=== PATIENT | male | born 1995 | race Caucasian/White ===

== ENCOUNTER 2017-09-26 15:44 | Emergency (ER) | payer BC ==
[~2017-09-26] VITALS: Ht 180.3 cm; Wt 75.0 kg
[2017-09-26 15:45] VITALS: BP 144/88; PULSE 80; RESP 14; TEMP 99; O2SAT 100
[2017-09-26] MEDS ORDERED: IBUP-232 PO (16:16)
[2017-09-26] MEDS ORDERED: TYLETAB34 PO (16:16)
[2017-09-26] MEDS ORDERED: CEPH-460 PO (16:16)
[2017-09-26] MEDS ORDERED: BACT800T5 PO (16:16)
--- NOTE | 2017-09-26 16:17 | PD ---
HPI Chief Complaint: Skin Problem Time Seen by Provider: 15:54 (Jacki Thomas DO) Time Seen by Provider: 18:47 (Jesus Real) Travel History International Travel<30 days: No Contact w/Intl Traveler<30days: No Traveled to known affect area: No (Jacki Thomas DO) International Travel<30 days: No Contact w/Intl Traveler<30days: No Traveled to known affect area: No (Jesus Real) History of Present Illness HPI Patient is a 21-year-old male presents to emergency room complaints of abscess to his left posterior ear. Patient reports that initially, he noticed a bump "pimple" to the back of his ear, reports that he has been picking at the back of his ear and the "bump" got a lot bigger and painful. Patient reports that he always develops abscesses and is unsure why. Patient with no fever/chills. Reports that tetanus is not up do date. Patient with no other complaints at this time. (Jacki Thomas DO) FORMERLY [facility] Past Medical History Medical History: Denies Significant Hx (Jacki Thomas DO) Past Surgical History Surgical History: No Previous Surgery (Jacki Thomas DO) Social History Tobacco Use: No (Jacki Thomas DO) Allergies-Medications (Allergen,Severity, Reaction): Coded Allergies: No Known Allergies (Verified Allergy, Unknown, 09/26/17) Reported Meds & Prescriptions Reported Meds & Active Scripts Active Tylenol-Codeine #3 (Acetaminophen-Codeine) 300-30 mg Tab 1-2 Tab PO Q6H PRN Ibuprofen 600 Mg Tab 600 Mg PO Q6H PRN Bactrim DS (Sulfamethoxazole-Trimethoprim) 800-160 Mg Tab 1 Tab PO BID 7 Days Keflex (Cephalexin) 500 Mg Cap 500 Mg PO Q6H 7 Days (Jesus Real) Review of Systems General / Constitutional: No: Fever Eyes: No: Visual changes HENT: No: Headaches Cardiovascular: No: Chest Pain or Discomfort Respiratory: No: Shortness of Breath Gastrointestinal: No: Abdominal Pain Genitourinary: No: Dysuria Musculoskeletal: No: Pain Skin: No Rash Neurologic: Positive: Other (abscess), No: Weakness Psychiatric: No: Depression Endocrine: No: Polydipsia Hematologic/Lymphatic: No: Easy Bruising (Jacki Thomas DO) Physical Exam Narrative GENERAL: Well-nourished, well-developed patient. SKIN: Focused skin assessment warm/dry. HEAD: Normocephalic. EYES: No scleral icterus. No injection or drainage. Patient with fluctuant abscess to left posterior ear NECK: Supple, trachea midline. No JVD or lymphadenopathy. CARDIOVASCULAR: Regular rate and rhythm without murmurs, gallops, or rubs. RESPIRATORY: Breath sounds equal bilaterally. No accessory muscle use. GASTROINTESTINAL: Abdomen soft, non-tender, nondistended. MUSCULOSKELETAL: No cyanosis, or edema. BACK: Nontender without obvious deformity. No CVA tenderness. (Jacki Thomas DO) Data Data Last Documented VS Vital Signs Date Time Temp Pulse Resp B/P (MAP) Pulse Ox O2 Delivery O2 Flow Rate FiO2 09/26/17 16:39 09/26/17 15:45 99.0 80 14 100 (Jesus Real) Orders Orders Tetanus/Diphtheria Tox Adult (Tetanus/Di (09/26/17 16:30) Sulfamet-Trimeth Ds 800-160 Mg (Bactrim (09/26/17 16:30) Cephalexin (Keflex) (09/26/17 16:30) Ibuprofen (Motrin) (09/26/17 16:30) Ed Discharge Order (09/26/17 16:18) (Jesus Real) MDM Medical Decision Making Medical Screen Exam Complete: Yes Emergency Medical Condition: Yes Medical Record Reviewed: Yes Interpretation(s) Vital Signs Date Time Temp Pulse Resp B/P (MAP) Pulse Ox O2 Delivery O2 Flow Rate FiO2 09/26/17 15:45 99.0 80 14 144/88 (106) 100 Differential Diagnosis Abscess Narrative Course Patient with left abscess to posterior, abscess with I&D, there was purulent drainage from abscess, will update pt's tetanus and start on antibiotics. patient safe to be discharged to home with outpatient referrals (Jacki Thomas DO) Procedures Procedure Narrative INCISION AND DRAINAGE OF ABSCESS: The area was prepped and was sterilely draped. A subcutaneous wheal of 1% lidocaine with a total number 1 mL was used to anesthetize the area properly. A number 11 scalpel was used to make a stab incision across the area of the abscess. The abscess was drained, complex loculations were broken down, and irrigated with normal saline. Patient tolerated procedure well (Jacki Thomas DO) Diagnosis Primary Impression: Abscess Patient Instructions: General Instructions Additional Instructions: Please take all medications as prescribed Return to emergency if symptoms worsen or progress Return to the emergency room as needed Please follow up with your primary care doctor in 2-3 days Med/Other Pt SpecificInfo: Prescription(s) given (Jacki Thomas DO) Scripts Acetaminophen-Codeine (Tylenol-Codeine #3) 300-30 mg Tab 1-2 TAB PO Q6H Y for PAIN, #6 TAB 0 Refills Prov: Jacki Thomas DO 09/26/17 Ibuprofen (Ibuprofen) 600 Mg Tab 600 MG PO Q6H Y for Pain/Inflammation, #40 TAB 0 Refills Prov: Jacki Thomas DO 09/26/17 Sulfamethoxazole-Trimethoprim (Bactrim DS) 800-160 Mg Tab 1 TAB PO BID for Infection for 7 Days, #14 TAB 0 Refills Prov: Jacki Thomas DO 09/26/17 Cephalexin (Keflex) 500 Mg Cap 500 MG PO Q6H for Infection for 7 Days, #28 CAP 0 Refills Prov: Jacki Thomas DO 09/26/17 Disposition: 01 DISCHARGE HOME Condition: Stable Jacki Thomas DO Sep 26, 2017 16:16 Jesus Real Sep 26, 2017 18:48
[2017-09-26] MEDS ORDERED: CEPHALEXIN MONOHYDRATE 500 MG CAP PO ONE (16:30)
[2017-09-26] MEDS ORDERED: TETANUS/DIPHTHERIA TOXOID ADULT 0.5 ML VIAL IM ONE (16:30)
[2017-09-26] MEDS ORDERED: SULFAMETHOXAZOLE-TRIMETHOPRIM DS 800-160 MG TAB PO ONE (16:30)
[2017-09-26] MEDS ORDERED: IBUPROFEN 600 MG TAB PO ONE (16:30)
== END 2017-09-26 16:41 | disposition home or self-care (01) ==
LOC: NEPD 15:44
DX: H60.02 Abscess of left external ear (principal); Z23 Encounter for immunization
CPT/HCPCS: 90471; 90714